=== PATIENT | male | born 1955 | race Caucasian/White ===

== ENCOUNTER 2017-11-29 10:17 | Day surgery (SDC) | payer MEDICAID, SELFPAY ==
[2017-11-29 10:50] VITALS: BP 123/82; PULSE 78; RESP 20; TEMP 36.8; O2SAT 98; BMI 27.2
--- NOTE | 2017-11-29 11:50 | RAD_ITS ---
STUDY: X-RAY - LEFT KNEE REASON FOR EXAM: Male, 62 years old. Left knee injection in [place] or. TECHNIQUE: 3 AP intraoperative digital radiographs view(s) of the knee. COMPARISON: None. FINDINGS: Metallic knee arthroplasty. The femoral component and tibial component are in good anatomic alignment. Initial digital spot radiograph shows metallic needle touching the cortical surface of the medial aspect of the distal femoral shaft. Second digital spot radiograph shows metallic needle overlying the lateral cortex of the distal femoral shaft. The third digital spot radiograph shows metallic needle overlying the medial proximal metaphyses. RAD/Fluoro Guided Needle Placement IMPRESSION: 3 intraoperative digital spot radiographs showing progression of metallic needle placement in the medial aspect of the distal femoral shaft and then the lateral aspect of the distal femoral shaft and finally in the proximal medial tibial metaphyses. No contrast injected anywhere in the 3 digital spot radiographs. Electronically Signed: Dave Ordaz MD at 12:55 EDT , Service support ,
[2017-11-29] MEDS: MethylPREDNISolone Acetate 80 MG/ML Vial (12:30)
[2017-11-29] MEDS: Bupivacaine 0.25% 30 ML Vial (12:30)
[2017-11-29 12:36] VITALS: BP 123/82; BP 98/71; PULSE 66; RESP 16; TEMP 36.5; O2SAT 95
[2017-11-29 12:40] VITALS: BP 116/79; BP 123/82; PULSE 57; RESP 16; O2SAT 97
[2017-11-29 12:45] VITALS: BP 116/79; BP 123/82; PULSE 58; RESP 16; O2SAT 95
[2017-11-29 12:50] VITALS: BP 115/69; BP 123/82; PULSE 62; RESP 16; TEMP 36.1; O2SAT 95
[2017-11-29 13:12] VITALS: BP 123/82
--- NOTE | 2017-11-29 13:20 | OP.PCM_ITS ---
Problem List (1) Chronic post-operative pain Status: Chronic (2) Rheumatoid arthritis Status: Chronic Report of Operation Date of Procedure: 11/29/17 Pre-Operative Diagnosis: Chronic postoperative knee pain status post left total knee replacement Post-Operative Diagnosis: Chronic postoperative knee pain status post left total knee replacement Surgery/Procedure Performed:: Left knee superior medial, superior lateral, inferior medial genicular nerve steroid injection under fluoroscopic guidance Description of Surgical Findings:: PROCEDURE: Left knee superior medial, superior lateral, inferior medial genicular nerve steroid injection under fluoroscopic guidance PREOPERATIVE DIAGNOSIS: Chronic postoperative knee pain status post left total knee replacement POSTOPERATIVE DIAGNOSIS: Chronic postoperative knee pain status post left total knee replacement ANESTHESIA: MAC COMPLICATIONS: None BLOOD LOSS: Minimal PROCEDURE IN DETAIL: History and physical today was reviewed. Risks and benefits of the procedure were explained. The patient understood, agreed to our procedure, and informed consent was obtained. IV inserted per routine protocol. The patient was taken to the operating room, placed in a supine position with a pillow position underneath the left knee under direct visualization fluoroscopy on AP view the left knee was visualized the skin and subcutaneous tissue were anesthetized with approximately 5 cc of 1 % lidocaine using a 25-gauge regular needle at the vicinity of the superior medial superior lateral and inferior medial genicular nerves under direct relation fluoroscopy on AP as well as lateral view using a 22-gauge 3-1/2 inch spinal needle starting at the left superior medial ending at the left inferior medial passing through the left superior lateral nerve the needle passed through the skin the tip of the needle's maneuver and directed towards the diaphyseal junction of each corresponding nerve once the tip of the needle was at the vicinity of the targeted nerve and confirmation was obtained on AP as well as lateral view, a total of 12 cc of preservative-free 0.25% Marcaine with 80 mg of Depo-Medrol were injected in divided doses between these 3 levels the needles were then removed intact. The patient experienced no signs or symptoms intravascular injection. The patient experienced no paraesthesia. The procedure was completed without any apparent difficult, any complication. The patient appeared to tolerate well. ASSESSMENT AND PLAN: This is a 62-year-old male chronic postoperative knee pain status post left total knee replacement status post superior medial, superior lateral, inferior medial genicular nerve steroid injection under fluoroscopic guidance. The patient will continue his current medications. The patient will follow in approximately 2 weeks for possible repeat of the procedure if indicated.
== END 2017-11-29 13:13 | disposition home or self-care (01) ==
LOC: SDC 10:17 → AC 10:20
PROVIDERS: Family Provider Nurse Practitioner Family; PCP Nurse Practitioner Family; Visit Provider Anesthesiology Pain Medicine
PROC: 3E0U3GC Introduction of Other Therapeutic Substance into Joints, Percutaneous Approach (ICD-10-PCS; CPT 20610; principal; 2017-11-29 11:45)
DX: G89.28 Other chronic postprocedural pain (principal); Z96.652 Presence of left artificial knee joint; M06.9 Rheumatoid arthritis, unspecified; Z79.899 Other long term (current) drug therapy; Z79.52 Long term (current) use of systemic steroids; F17.200 Nicotine dependence, unspecified, uncomplicated; J45.909 Unspecified asthma, uncomplicated
CPT/HCPCS: 64450; 76000; 77002; J7120

== ENCOUNTER 2018-06-29 12:09 | Inpatient (IN) | payer MEDICAID, SELFPAY ==
[2018-06-13 11:12] VITALS: BP 127/73; PULSE 79; RESP 18; TEMP 37.4; O2SAT 96; BMI 28.3
--- NOTE | 2018-06-13 11:45 | SDCEKG_ITS ---
Test Reason : Blood Pressure : / mmHG Vent. Rate : 076 BPM Atrial Rate : 076 BPM P-R Int : 138 ms QRS Dur : 094 ms QT Int : 388 ms P-R-T Axes : -06 064 043 degrees QTc Int : 436 ms Normal sinus rhythm Normal ECG Confirmed by REDD CRENSHAW MD ([id number]), video news editor JETT RICHARD ([id number]) on 06/15/2018 1:11:28 PM Referred By: Wally Ledezma Confirmed By:REDD CRENSHAW MD
--- NOTE | 2018-06-13 11:45 | RAD_ITS ---
STUDY: X-RAY CHEST REASON FOR EXAM: Male, 63 years old. Preoperative assessment TECHNIQUE: Frontal and lateral views of the chest were obtained. COMPARISON: Prior comparison studies are not available for review at this time. FINDINGS: The lungs are hyperinflated. There are no focal airspace opacities. There is no demonstrated pleural abnormality. The cardiac silhouette is normal in size. The mediastinum and hilar regions are unremarkable. Normal visualized pulmonary arteries. There is atherosclerotic calcification of the thoracic aorta. There are diffuse degenerative changes of the visualized spine. There are degenerative changes in both shoulders. There is no demonstrated abnormality of the visualized upper abdomen. RAD/Chest PA and Lateral IMPRESSION: No acute cardiopulmonary abnormalities. Hyperinflation is consistent with COPD. Electronically Signed: Nadia Turpin MD at 0:07 EST Tel Direct: [phone], Service support ,
[2018-06-13 13:13] LABS: Absolute Lymphocyte Count 1.52 X10^3/ul (0.83-4.51); Basophil# 0.03 X10^3/uL; Basophil% 0.4 % (0-1); Eosinophil# 0.03 X10^3/uL; Eosinophils% 0.4 % (0-5); Hematocrit 45.9 % (40-54); Hemoglobin 16.4 g/dl (13.0-16.5); Lymphocyte # 1.52 X10^3/ul (4.0); Lymphocyte % 19.1 % (19-41); Mean Corp Hgb Conc 35.7 g/gl (32-36); Mean Corpuscular Hgb 33.8 pg (27.0-32.0); Mean Corpuscular Volume 94.6 fL (80-94); Mean Platelet Vol. 10.1 fl (6.2-12.0); Monocyte# 0.31 X10^3/uL; Monocyte% 3.9 % (0-10); Neutrophil # 6.04 X10^3/uL (2.7-7.7); Neutrophil % 75.7 % (47-70); POSITIVE COUNT NO; POSITIVE DIFFERENTIAL NO; POSITIVE MORPHOLOGY NO; Platelet Count 223 K/mm3 (150-450); RBC Distribution Width CV 12.5 % (11.6-14.6); RBC Distribution Width SD 42.3 fl (35.1-43.9); Red Blood Count 4.85 M/mm3 (4.6-6.2)
[2018-06-13 13:15] LABS: Anion Gap 6 (5-15); BUN 21 mg/dL (7-18); BUN/Creat Ratio 21.6 RATIO (10-20); Calcium,Total 8.8 mg/dL (8.5-10.1); Chloride 105 mmol/L (98-107); Creatinine, Serum 0.97 mg/dL (0.70-1.30); EST Glomerular Filtration Rate 83 mL/min (>60); Est Glom Filt Rate - Afr Amer 100 mL/min (>60); Estimated Creatinine Clearance 68.51 ml/min; Glucose 106 mg/dL (74-106); Sodium Level 138 mmol/L (136-145)
[2018-06-29] VITALS (12 sets, daily range): BP systolic 92–128; BP diastolic 60–76; PULSE 58–77; RESP 16; TEMP 36.1–36.9; O2SAT 94–100; BMI 28.3
[2018-06-29] MEDS: Acetaminophen 500 MG Tablet 1000 MG PO ×2 (12:49→22:21)
[2018-06-29] MEDS: Celecoxib 200 MG Capsule 400 MG PO (12:50)
[2018-06-29] MEDS: oxyCODONE HCl Cr 10 MG Tablet PO (12:50)
[2018-06-29] MEDS: Cefazolin 2 GM in 0.9% Normal Saline 100 ML IV (14:05)
--- NOTE | 2018-06-29 15:03 | PCM.OPRPT ---
Report of Operation Date of Procedure: 06/29/18 Pre-Operative Diagnosis: Painful left total knee, instability Post-Operative Diagnosis: Painful left total knee, instability Surgery/Procedure Performed:: Revision left total knee replacement, tibial implant Description of Surgical Findings:: Crease knee stability. Knee appeared to be well balanced in flexion and extension. Implants were stable. sheet rock nailer: Uzair Farias Type of Anesthesia:: Spinal Anesthesiologist: Jamshid Harvey Special Medications: 2 g Ancef, 1 g TXA at incision, 1 g TXA closure, 10 mg Decadron, joint cocktail (5 mg Duramorph, 30 mL of 0.5% Ropivicaine, 1000 units of epinephrine, 30 mg of Toradol) Specimen's removed: 3 separate specimens were sent to micrology Estimated Blood Loss (mL): 25 Fluids Replaced: 1 L crystalloid Description of Procedure: 63 yo m history of l TKA presents with painful left total knee with instability. Reviewed options were discussed the patient. Based on the instability both in flexion and extension a revision with polyethylene exchange is recommended. Risks and benefits of the procedure were discussed with the patient including but not limited to blood loss, DVTs, PEs, neurovascular damage, infection, general risk of anesthesia including loss of life. Demonstrated understanding and was able to sign informed consent. On the date of procedure patient's L lower extremity was marked in the preoperative area. The patient was then taken back to the operating room where the patient was placed on the table in the supine position. All bony prominences were identified a well-padded. Anesthesia assumed control of the C-spine and airway and remained controlled throughout the remainder of the procedure. A tourniquet was placed on the operative thigh and the leg was prepped in a sterile fashion. The surgeon then scrubbed at this time .Upon reentering the room left lower extremity was draped in a standard orthopedic fashion. A timeout was then called and everyone agreed upon the side, the site, the procedure to be performed, patient's identity and antibiotics given. A midline skin incision was made and sharp dissection was taken down through skin subcutaneous tissue and fat. Appropriate flaps were elevated medially and laterally. His arthrotomy was identified and the standard medial parapatellar incision was made and the patella was subluxed laterally. The standard deep MCL release was done. At this point an aggressive synovectomy commenced. Our attention was first turned towards the subpatellar pouch and all suspicious synovium and tissues were debrided. We then directed our attention towards medial lateral gutters were these tissues were aggressively debrided. Knee was then flexed up the polyethylene was removed. Once polyethylene was removed we did the remainder of the synovium in the medial and lateral gutters and along the lateral structures and MCL. We then debrided the posterior knee. Knee was flexed up and culture was taken from the femoral notch. And also there was a membrane beneath the tibial baseplate that was removed and sent for culture. He had completed our synovectomy and were happy with the joint 6 L of normal saline were then irrigated throughout the wound with low-pressure lavage and the wound was once again explored. All remaining tissue that was suspicious was seen in the wound was once again irrigated with normal saline. A 15 mm polyethylene was then opened and put back into place after appropriate trialing. Tourniquet was let down and hemostasis was obtained as well as possible. Once the final components were placed the wound was copiously irrigated with normal saline solution. The wound was closed in a layer mcclure fashion using #1 vicryl interrupted sutures for the arthrotomy, 2-0 interrupted Vicryl for the subcuticular layer and faiza for final skin closure. A sterile compressive dressing was then placed. The patient was then awakened from anesthesia, transferred to the [facility] and transferred to the PACU for recovery. Post op plan Patient will be placed on aspirin 81 mg twice daily for DVT prophylaxis. Weight-bear as tolerated, activity as tolerated. Will commence physical therapy postop day 1. Patient will remain on doxycycline for 1 week as we follow cultures. My physician medical billing assistant was a vital part of this case. He was important in appropriate retraction during the case, and protection of soft tissues during bony cuts. His intimate knowledge of the case and my steps aided in safe and expedient completion of the procedure as well as appropriate position of the leg during the case. He was also vital in assisting with closure under my direct supervision. [facility] - Complications None - Admit VTE Documentation VTE Present on Admission: No VTE Mechan Device Prophylaxis: SCD's, Thigh High SERVANDO Hose VTE Pharm Prophylaxis ordered?: Yes
--- NOTE | 2018-06-29 15:08 | OP.PCM_ITS ---
Report of Operation Date of Procedure: 06/29/18 Pre-Operative Diagnosis: Painful left total knee, instability Post-Operative Diagnosis: Painful left total knee, instability Surgery/Procedure Performed:: Revision left total knee replacement, tibial implant Description of Surgical Findings:: Crease knee stability. Knee appeared to be well balanced in flexion and extension. Implants were stable. senior research analyst: Uzair Farias Type of Anesthesia:: Spinal Anesthesiologist: Jamshid Harvey Special Medications: 2 g Ancef, 1 g TXA at incision, 1 g TXA closure, 10 mg Decadron, joint cocktail (5 mg Duramorph, 30 mL of 0.5% Ropivicaine, 1000 units of epinephrine, 30 mg of Toradol) Specimen's removed: 3 separate specimens were sent to micrology Estimated Blood Loss (mL): 25 Fluids Replaced: 1 L crystalloid Description of Procedure: 63 yo m history of l TKA presents with painful left total knee with instability. Reviewed options were discussed the patient. Based on the instability both in flexion and extension a revision with polyethylene exchange is recommended. Risks and benefits of the procedure were discussed with the patient including but not limited to blood loss, DVTs, PEs, neurovascular damage, infection, general risk of anesthesia including loss of life. Demonstrated understanding and was able to sign informed consent. On the date of procedure patient's L lower extremity was marked in the preoperative area. The patient was then taken back to the operating room where the patient was placed on the table in the supine position. All bony prominences were identified a well-padded. Anesthesia assumed control of the C-spine and airway and remained controlled throughout the remainder of the procedure. A tourniquet was placed on the operative thigh and the leg was prepped in a sterile fashion. The surgeon then scrubbed at this time .Upon reentering the room left lower extremity was draped in a standard orthopedic fashion. A timeout was then called and everyone agreed upon the side, the site, the procedure to be performed, patient's identity and antibiotics given. A midline skin incision was made and sharp dissection was taken down through skin subcutaneous tissue and fat. Appropriate flaps were elevated medially and laterally. His arthrotomy was identified and the standard medial parapatellar incision was made and the patella was subluxed laterally. The standard deep MCL release was done. At this point an aggressive synovectomy commenced. Our attention was first turned towards the subpatellar pouch and all suspicious synovium and tissues were debrided. We then directed our attention towards medial lateral gutters were these tissues were aggressively debrided. Knee was then flexed up the polyethylene was removed. Once polyethylene was removed we did the remainder of the synovium in the medial and lateral gutters and along the lateral structures and MCL. We then debrided the posterior knee. Knee was flexed up and culture was taken from the femoral notch. And also there was a membrane beneath the tibial baseplate that was removed and sent for culture. He had completed our synovectomy and were happy with the joint 6 L of normal saline were then irrigated throughout the wound with low-pressure lavage and the wound was once again explored. All remaining tissue that was suspicious was seen in the wound was once again irrigated with normal saline. A 15 mm polyethylene was then opened and put back into place after appropriate trialing. Tourniquet was let down and hemostasis was obtained as well as possible. Once the final components were placed the wound was copiously irrigated with normal saline solution. The wound was closed in a layer mcclure fashion using #1 vicryl interrupted sutures for the arthrotomy, 2-0 interrupted Vicryl for the subcuticular layer and faiza for final skin closure. A sterile compressive dressing was then placed. The patient was then awakened from anesthesia, [facility] and transferred to the PACU for recovery. Post op plan Patient will be placed on aspirin 81 mg twice daily for DVT prophylaxis. Weight-bear as tolerated, activity as tolerated. Will commence physical therapy postop day 1. Patient will remain on doxycycline for 1 week as we follow cultures. My physician wet process miller head assistant was a vital part of this case. He was important in appropriate retraction during the case, and protection of soft tissues during bony cuts. His intimate knowledge of the case and my steps aided in safe and expedient completion of the procedure as well as appropriate position of the leg during the case. He was also vital in assisting with closure under my direct supervision. [facility] 450 mm - Complications None - Admit VTE Documentation VTE Present on Admission: No VTE Mechan Device Prophylaxis: SCD's, Thigh High SERVANDO Hose VTE Pharm Prophylaxis ordered?: Yes
--- NOTE | 2018-06-29 15:35 | RAD_ITS ---
STUDY: X-RAY - LEFT KNEE REASON FOR EXAM: Male, 63 years old. Postop knee replacement TECHNIQUE: 2 view(s) of the knee. COMPARISON: None. Findings: There is a recent total knee arthroplasty. The femoral and tibial components appear in satisfactory position. There has been patellar resurfacing. There is soft tissue air related to the recent surgery. The visualized femoral, tibial, and fibular shafts are unremarkable. RAD/Knee 1 or 2 Views IMPRESSION: Satisfactory appearance of a total knee arthroplasty. Electronically Signed: José Luis Padron MD at 16:11 EST , Service support ,
[2018-06-29] MEDS: Scopolamine 1mg/72hr Patch 1 PATCH TD (17:14)
[2018-06-29] MEDS: oxyCODONE 5 MG Tablet PO (22:21)
[2018-06-29] MEDS: Methocarbamol 500 MG Tablet PO (22:22)
[2018-06-29] MEDS: Senna/Docusate Sodium 1 Tablet 2 TABLET PO (22:22)
[2018-06-29] MEDS: Aspirin 81 MG TAB.CHEW PO (22:22)
[2018-06-29] MEDS: Doxycycline 100 MG CAPSULE PO (22:22)
[2018-06-29] MEDS: Cefazolin 1 GM/50 ML BAG IV (22:23)
[2018-06-30] MEDS: Ketorolac 15 MG/ML Vial IV ×2 (00:09→08:10)
[2018-06-30] MEDS: oxyCODONE 5 MG Tablet PO (02:53)
[2018-06-30 03:30] VITALS: BP 102/63; PULSE 53; RESP 16; TEMP 36.2; O2SAT 97
[2018-06-30 06:09] LABS: Hematocrit 38.5 % (40-54); Hemoglobin 13.5 g/dl (13.0-16.5); Mean Corp Hgb Conc 35.1 g/gl (32-36); Mean Corpuscular Hgb 33.1 pg (27.0-32.0); Mean Corpuscular Volume 94.4 fL (80-94); Mean Platelet Vol. 9.8 fl (6.2-12.0); Platelet Count 218 K/mm3 (150-450); RBC Distribution Width CV 12.2 % (11.6-14.6); RBC Distribution Width SD 41.4 fl (35.1-43.9); Red Blood Count 4.08 M/mm3 (4.6-6.2); White Blood Count 8.4 K/mm3 (4.4-11.0)
[2018-06-30 06:14] LABS: Scan Indicated on CBC? Y/N NO
[2018-06-30 06:18] LABS: BUN 22 mg/dL (7-18); Creatinine, Serum 1.06 mg/dL (0.70-1.30); Glucose 119 mg/dL (74-106)
[2018-06-30 06:19] LABS: Anion Gap 6 (5-15); BUN/Creat Ratio 20.8 RATIO (10-20); Calcium,Total 8.2 mg/dL (8.5-10.1); Chloride 106 mmol/L (98-107); EST Glomerular Filtration Rate 75 mL/min (>60); Est Glom Filt Rate - Afr Amer 90 mL/min (>60); Potassium 4.5 mmol/L (3.5-5.1); Sodium Level 138 mmol/L (136-145)
[2018-06-30] MEDS: Acetaminophen 500 MG Tablet 1000 MG PO (06:33)
[2018-06-30] MEDS: Cefazolin 1 GM/50 ML BAG IV (06:34)
--- NOTE | 2018-06-30 07:57 | PN.ORTHO_ITS ---
Subjective: The patient was sitting in bed upon examination. Patient denies any chest pain, shortness of breath, dizziness, lightheadedness, nausea or vomiting, or calf pain. Pain is controlled on medications. No adverse overnight events. Overall patient is doing well. Patient does wish to go home today. Objective: Vital signs stable and afebrile. Patient is able to plantarflex and dorsiflex actively. Sensation is intact to light touch to saphenous, sural, superficial and deep peroneal, and tibial distribution. Dressing is clean dry and intact. Negative Homans bilaterally, negative signs and symptoms of DVT. - Physical Exam General: Alert, Oriented x3, Cooperative, No apparent distress Vital Signs Temp Pulse Resp BP Pulse Ox 97.2 F L 53 L 16 102/63 97 06/30/18 03:30 06/30/18 03:30 06/30/18 03:30 06/30/18 03:30 06/30/18 03:30 Oxygen Delivery Method Room Air Weight: 80.739 kg Body Mass Index (BMI) 28.3 Intake and Output for Last 24 Hours 06/28/18 06/29/18 06/30/18 23:59 23:59 23:59 Intake Total 1999 1179 / 1179 Balance 1999 1179 / 1179 Laboratory Tests Past 24 Hrs 06/30/18 06/30/18 05:50 05:50 WBC 8.4 RBC 4.08 L Hgb 13.5 Hct 38.5 L MCV 94.4 H MCH 33.1 H MCHC 35.1 RDW 12.2 RDW Differential 41.4 Plt Count 218 MPV 9.8 Sodium 138 Potassium 4.5 Chloride 106 Carbon Dioxide 26.0 Anion Gap 6 BUN 22 H Creatinine 1.06 Estim Creat Clear Calc 62.70 Est GFR (MDRD) Af Amer 90 Est GFR (MDRD) Non-Af 75 BUN/Creatinine Ratio 20.8 H Glucose 119 H Calcium 8.2 L Medical Necessity - Tobacco Use Smoking Status: Current every day smoker Assessment/Plan 1. S/P left total knee polyethylene exchange POD #1 2. Continue Pain Medications: Tylenol and OxyIR 3. DVT Prophylaxis: Aspirin 81 mg twice daily with food for 4 weeks postoperatively 4. PT/OT: Weightbearing as tolerated 5. H & H: 13.5/38.5, asymptomatic 6. Encouraged Incentive Spirometry 7. Continue doxycycline while following cultures: Currently pending 8. Disposition: Orthopedically stable, plan will be for discharge home today if patient tolerates physical therapy and pain is controlled. Prescriptions will be E scribed to [facility] pharmacy in [place]. Patient will follow-up per postop instructions.
--- NOTE | 2018-06-30 08:07 | DCINST_ITS ---
Discharge Diet: No Restrictions Discharge Activity: May Not Drive May shower in (days): 1 - Turned dressing away from water Ice area for (Minutes): 20 - every hour while awake. Weight Bearing Status: Weight bearing as tolerated Elevate: Operative Extremity Additional Activity Instructions:: Wear elastic stockings for 2 weeks after your surgery. Call your doctor if your incision/area has: Continuous Slow Oozing, Sudden Increased Bleeding, Increased Pain/ Swelling, Increased Redness, Foul Smelling Discharge Call your doctor if you observe: Fever of 101 or Higher, Coldness, Increased Pain, Numbness or Tingling, Change in Color, Calf discomfort, Uncontrolled pain Remove Dressing in (days):: 4 - Okay to remove dressing on July 04, 2018 Additional Instructions: Follow [facility] postop instructions Allergies/Adverse Reactions: Allergies adalimumab [From Humira] Allergy (Verified 06/13/18 10:56) panic attack ARTHRITIS IV MED Allergy (Uncoded 06/13/18 10:56) Rash Medications to take at Discharge Albuterol Inhaler [Ventolin Hfa] 1 - 2 puff INHALATION Q4H PRN PRN 11/25/17 Methocarbamol [Robaxin] 500 mg PO BID 11/25/17 Prednisone 10 mg PO DAILY 11/25/17 Omeprazole [Prilosec] 40 mg PO DAILY 06/13/18 Acetaminophen [Tylenol Extra Strength] 1,000 mg PO Q8H #90 tablet 06/30/18 Aspirin [Aspirin, Baby] 81 mg PO BID #60 tab.chew 06/30/18 Doxycycline 100 mg PO BID #14 capsule 06/30/18 Meloxicam [Mobic] 7.5 mg PO BID #60 tablet 06/30/18 Oxycodone [Oxyir] 5 - 10 mg PO Q4H PRN PRN 5 Days #60 tablet 06/30/18 The following prescriptions were given: Oxycodone [Oxyir] 5 - 10 mg PO Q4H PRN PRN 5 Days #60 tablet PRN Reason: Mod-Severe Pain (-05/04) Acetaminophen [Tylenol Extra Strength] 1,000 mg PO Q8H #90 tablet Aspirin [Aspirin, Baby] 81 mg PO BID #60 tab.chew Doxycycline 100 mg PO BID #14 capsule Meloxicam [Mobic] 7.5 mg PO BID #60 tablet Primary Care Physician: Makeda Rivera NP-C [Primary Care Provider] - Test Results: Test results from this visit will be discussed in further detail at your follow- up appointment, if applicable. Please Follow Up With: Physical therapy Please Follow Up With: Uzair Farias PA-C When: 07/13/18 @ 10:30 am
[2018-06-30] MEDS: predniSONE 10 MG Tablet PO (08:10)
[2018-06-30] MEDS: 0.9% NaCl Peripheral Flush Adult/Peds IV (08:11)
[2018-06-30] MEDS: Methocarbamol 500 MG Tablet PO (09:06)
[2018-06-30] MEDS: Senna/Docusate Sodium 1 Tablet 2 TABLET PO (09:06)
[2018-06-30] MEDS: Aspirin 81 MG TAB.CHEW PO (09:06)
[2018-06-30] MEDS: Doxycycline 100 MG CAPSULE PO (09:06)
[2018-06-30] MEDS: Famotidine 20 MG Tablet PO (09:06)
[2018-06-30] MEDS: Pantoprazole Sodium 40 MG Tablet PO (09:06)
[2018-06-30 09:18] VITALS: BP 102/46; PULSE 83; RESP 16; TEMP 36.5; O2SAT 97
--- NOTE | 2018-06-30 11:15 | CASEMGMT ---
ARJUN ALTMAN Face to Face with patient for initial transition planning/care coordination assessment. ARJUN ALTMAN introduced self and role at [facility]. Patient sitting in chair, alert and oriented. Patient willing to participate in assessment and is able to answer all questions appropriately. Care providers, pharmacy, and demographics verified. Patient wishes to discharge home and would like outpatient therapy at [facility] in [place]. ARJUN ALTMAN called [facility] and requested script for therapy be sent to [facility]. Patient states he has no further needs or concerns at this time. CM to follow for discharge planning needs that may arise. Patient lives alone in a 1st floor apartment with no steps to enter home. Sister can provide transportation. Patient has walker at home. Disposition Plan: Patient to discharge home with outpatient therapy, family support, and follow-up plans in place. Sonya GOLDSMITH, RN, CM
[2018-06-30 12:54] VITALS: BP 132/72; PULSE 63; RESP 16; TEMP 36.8; O2SAT 97
== END 2018-06-30 13:00 | disposition home or self-care (01) | DRG 302 ==
LOC: ACINP 12:12 → MS3 13:27
PROVIDERS: Admitting Provider Specialist; Family Provider Nurse Practitioner Family; PCP Nurse Practitioner Family; Referring Provider Specialist; Visit Provider Specialist
PROC: 0SPW0JZ Removal of Synthetic Substitute from Left Knee Joint, Tibial Surface, Open Approach (ICD-10-PCS; CPT 27487; principal; 2018-06-29 14:10)
DX: T84.023A Instability of internal left knee prosthesis, initial encounter (principal); T84.84XA Pain due to internal orthopedic prosthetic devices, implants and grafts, initial encounter; F17.200 Nicotine dependence, unspecified, uncomplicated; Z96.652 Presence of left artificial knee joint; J43.9 Emphysema, unspecified; I25.2 Old myocardial infarction; E66.3 Overweight; Z68.28 Body mass index [BMI] 28.0-28.9, adult; Z86.73 Personal history of transient ischemic attack (TIA), and cerebral infarction without residual deficits
CPT/HCPCS: 36415; 71046; 73560; 80048; 85025; 85027; 87015; 87070; 87075; 87081; 87102; 87116; 87205; 87206; 93005; 97161; 97165; 99251; C1776; J7120; A4216; G0463; J2405